=== PATIENT | male | born 1970 | race Caucasian/White ===

== ENCOUNTER → 2018-09-13 09:09 | Outpatient (CLI) | payer OTHER, SELFPAY ==
[2018-09-13 11:43] LABS: Alanine Aminotransferase 68 U/L (12-78); Albumin/Globulin Ratio 1.3 (1.1-1.8); Alkaline Phosphatase 58 U/L (46-116); Anion Gap 15.5 mEq/L (5-15); Aspartate Amino Transferase 23 U/L (15-37); Bilirubin,Total 1.3 mg/dL (0.2-1.0); Blood Urea Nitrogen 15 mg/dL (7-18); Calcium 9.1 mg/dL (8.5-10.1); Carbon Dioxide 26 mmol/L (21.0-32.0); Chloride 103 mmol/L (98-107); Chol/HDL Ratio 4.5 (1-3.5); Cholesterol 185 mg/dL (140-200); Creatinine,Serum 0.94 mg/dL (0.70-1.30); Estimated Glomerular Filt Rate 86 ml/min (>60); GFR (African American) 105 ML/MIN (>60); Globulin 3.2 gm/dl (1.3-3.2); Glucose 143 mg/dL (74-106); HDL Cholesterol 41 mg/dL (27-67); LDL Cholesterol 127 mg/dL (0-130); Potassium 4.5 mmoL/L (3.5-5.1); Sodium 140 mmol/L (136-145); Total Protein,Serum 7.2 gm/dL (6.4-8.2); Triglycerides 87 mg/dL (30-200); VLDL Cholesterol 17 mg/dL (0-40)
== END ==
PROVIDERS: Visit Provider Internal Medicine Adolescent Medicine
DX: Z00.00 Encounter for general adult medical examination without abnormal findings (principal)
CPT/HCPCS: 36415; 80053; 80061

== ENCOUNTER → 2019-03-27 09:49 | Outpatient (CLI) | payer OTHER, SELFPAY ==
--- NOTE | 2019-03-27 09:58 | XR_ITS ---
PROCEDURE: XR LUMBAR SPINE MIN 4V CLINICAL INDICATION: RT LBP WITH SCIATICA COMPARISON: No exams were available for comparison FINDINGS: There is normal alignment. No fracture or dislocation. No lytic or blastic change. Mild degenerate disc disease L5-S1. Minimal anterior osteophytes at L4. There is straightening/reversal of the normal lordosis which may be due to patient positioning or muscle spasm. IMPRESSION: Mild degenerative change with straightening of the normal lordosis Dictated by: Olivier Montoya MD 03/27/2019 10:33 Signed by: <Electronically signed by Olivier Montoya MD in [place]> 03/27/2019 10:33
== END ==
PROVIDERS: PCP Internal Medicine Adolescent Medicine; Visit Provider Internal Medicine Adolescent Medicine
DX: M54.41 Lumbago with sciatica, right side (principal)
CPT/HCPCS: 72110

== ENCOUNTER 2019-04-28 15:30 | Outpatient (RCR) | payer OTHER, SELFPAY ==
--- NOTE | 2019-04-01 16:33 | [facility].PTOPEV ---
PT Outpatient Evaluation Rehab PT Outpatient Evaluation Start: 04/01/19 15:42 Freq: Status: Active Protocol: Document 04/01/19 15:43 THERESE (Rec: 04/01/19 16:31 THERESE [id number]) Electronically Signed By Jayson Penaloza, PT 04/01/19 15:43 Outpatient Therapy Subjective History Subjective History Patient is a 48 year old male presenting to outpatient PT with reports of acute right sided low back pain with RLE radicular symptoms to of insidious onset starting 8 days ago. Pt presents with extension bias. Relief with lumbar distraction and special tests indicate R anterior rotation of the innominant. Most recent diagnostics idicate lumbar DDD. Comorbidities include R achilles tendon ruptur/repair and elevated BMI. Chief Complaint Pain,Paresthesia Symptom Type Ache,Throb,Sharp Symptoms Relieved By Rest/Positioning Symptoms Aggravated By Physical Activity Prior Functional Limitations None Current Functional Limitations Lifting,Housework,Standing, Walking Symptom Description Constant but Variable Level of pain today (0-10) 5 Pain scale - at its best (0-10) 5 Pain scale - at its worst (0-10) 9 Lumbopelvic Eval Posture Thoracic Spine Posture Standing Position Increased Kyphosis Lumbar Spine Posture Standing Position Decreased Lordosis Assistive device Assistive Devices None / NA Gait Observation General Gait Pattern Observation Decrease Weight Bear (R) Palapation tenderness right lumbar spinal tenderness Yes: L5/S1 3/4 buttock tenderness Yes: 3/4 Lumbar/Sacral Palpation Findings Tenderness Lumbar/Sacral Palpation Overall Comment R PSIS 3/4 Accessory Movement S1 right Range of Motion Lumbar Spine ROM Reason Not Measured Within Functional Limits Manual Muscle Test Bilateral Knee Extension Strength Grade 5 Normal Knee Flexion Strength Grade 5 Normal Hip Flexion Strength Grade 5 Normal Extensor Hallucis Longus Strength Grade 5 Normal Ankle Dorsiflexion Strength Grade 5 Normal Gastronemius/Soleus Strength Grade 5 Normal DTR Rt Patellar 2+ Lt Patellar 2+ Rt Gastroc/Soleus 2+ Lt Gastroc/Soleus 2+ Altered Sensation Right LE Dermatome Level S1 Comment pain Sp
== END 2019-04-28 15:35 | disposition home or self-care (01) ==
LOC: PT 15:30
PROVIDERS: PCP Internal Medicine Adolescent Medicine; Visit Provider Internal Medicine Adolescent Medicine
DX: M54.41 Lumbago with sciatica, right side (principal)
CPT/HCPCS: 97010; 97012; 97014; 97033; 97035; 97110; 97140; 97163; G0283